=== PATIENT | female | born 2000 | race African-American/Black ===

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

== ENCOUNTER 2020-02-01 13:56 | Emergency (ER) | payer OTHER ==
[2020-02-01] MEDS ORDERED: ACETAMINOPHEN 325 MG TABLET PO ONE (14:44)
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
[2020-02-01 16:03] VITALS: BP 115/57
== END 2020-02-01 16:01 | disposition home or self-care (01) ==
LOC: ER 13:56
DX: M54.2 Cervicalgia (principal); V63.5XXA Driver of heavy transport vehicle injured in collision with car, pick-up truck or van in traffic accident, initial encounter
CPT/HCPCS: 72125; 99284